=== PATIENT | female | born 1970 | race African-American/Black ===

== ENCOUNTER 2018-07-04 14:36 | Emergency (ER) | payer SELFPAY ==
[2018-07-04 15:12] LABS: % BASOPHILS 0.5 % (0.0-2.0); % LYMPHOCYTES 43.1 % (20.0-50.0); % MONOCYTES 9.7 % (2.0-10.0); % NEUTROPHILS 43.7 % (40.0-80.0); EOSINOPHILE ABSOLUTE 0.2 Th/cmm (0.1-0.4); HEMATOCRIT 36.9 % (41.0-60); HEMOGLOBIN 11.7 gm/dL (12-16); LYMPHOCYTE ABSOLUTE 2.7 Th/cmm (1.5-3.0); MEAN CELL VOLUME 79.9 fl (81-100); MEAN CORPUSCULAR HEMOGLOBIN 25.3 pg (27.0-31.0); MEAN CORPUSCULAR HGB CONC 31.7 pg (28.0-36.0); MEAN PLATELET VOLUME 8.6 fl; MONOCYTE ABSOLUTE 0.6 Th/cmm (0.3-1.0); NEUTROPHILE ABSOLUTE 2.8 Th/cmm (1.8-8.0); PLATELET COUNT 359 Th/cmm (150-400); RED BLOOD COUNT 4.62 Mil/cmm (3.80-5.10); RED CELL DISTRIBUTION WIDTH 15.5 % (11.5-20.0); WHITE BLOOD COUNT 6.3 Th/cmm (4.8-10.8)
[2018-07-04] MEDS ORDERED: Potassium Chloride Elixir 20 mEq /15 mL UDC PO ONE (15:14)
[2018-07-04 15:20] LABS: INR 0.95 (0.5-1.4); PROTHROMBIN TIME (TEST) 9.9 SECONDS (9.5-11.5)
[2018-07-04 15:25] LABS: ALB/GLOB RATIO 1.2 (1.0-1.8); ALBUMIN 3.5 gm/dL (3.7-5.3); ALKALINE PHOSPHATASE 90 U/L (34-104); ANION GAP 10.3 (7.0-16.0); BILIRUBIN,TOTAL 0.3 mg/dL (0.3-1.0); BUN - UREA NITROGEN 16 mg/dL (7-25); CARBON DIOXIDE 29.7 mEq/L (21.0-31.0); CHLORIDE 103 mEq/L (98-107); CREATININE - SERUM 0.6 mg/dL (0.6-1.2); GFR AFRICAN-AMERICAN > 60.0 ml/min (>90); GFR NON AFRICAN-AMERICAN > 60.0 ml/min; GLUCOSE 367 mg/dL (70-105); SGOT 18 U/L (13-39); SGPT/ALT 12 U/L (7-52); SODIUM SERUM 139 mEq/L (136-145); TOTAL PROTEIN,SERUM 6.4 gm/dL (6.0-8.3)
--- NOTE | 2018-07-04 15:31 | ED Physician Chart ---
ED Chief Complaint/HPI - Patient Information Date Seen:: 07/04/18 Time Seen:: 14:58 Chief Complaint:: cough History of Present Illness:: this is a 47 yr old female who is concerned that she has been treated with zithromycin and prednisone for a week and is not better. she has a bronchitis. she denies diabetes and hypertension. Allergies:: Allergies Allergy/AdvReac Type Severity Reaction Status Date / Time guaifenesin [From Robitussin] Allergy Verified 07/04/18 14:53 Vitals:: Vital Signs - 8 hr 07/04/18 14:45 Temp 98.5 F HR 76 RR 19 BP 139/52 O2 Sat % 99 Historian:: Patient Review:: Nurse's Note Reviewed ED Review of Systems - Review of Systems General/Constitutional: No fever, No chills, No weight loss, No weakness, No diaphoresis, No edema, No loss of appetite Skin: No skin lesions, No rash, No bruising Head: No headache, No light-headedness Eyes: No loss of vision, No pain, No diplopia ENT: No earache, No nasal drainage, No sore throat, No tinnitus Neck: No neck pain, No swelling, No thyromegaly, No stiffness, No mass noted Cardio Vascular: No chest pain, No palpitations, No PND, No orthopnea, No edema Pulmonary: Cough GI: No nausea, No vomiting, No diarrhea, No pain, No melena, No hematochezia, No constipation, No hematemesis G/U: No dysuria, No frequency, No hematuria Musculoskeletal: No bone or joint pain, No back pain, No muscle pain Endocrine: No polyuria, No polydipsia Psychiatric: No prior psych history, No depression, No anxiety, No suicidal ideation Hematopoietic: No bruising, No lymphadenopathy Allergic/Immuno: No urticaria, No angioedema Neurological: No syncope, No focal symptoms, No weakness, No paresthesia, No headache, No seizure, No dizziness, No confusion, No vertigo ED Past Medical History - Past Medical History Obtainable: Yes Past Medical History: Asthma/COPD Family History: None Social History: Non Smoker, No Alcohol, No Drug Use Surgical History: None, Psychiatricy History: None Medication: Reviewed Family Medical History - Family Member Mother History Unknown: Yes ED Physical Exam - Physical Examination General/Constitutional: Awake, Well-developed, well-nourished, Alert, No distress, GCS 15, Non-toxic appearing, Ambulatory Head: Atraumatic Eyes: Lids, conjuctiva normal, PERRL, EOMI Skin: Nl inspection, No rash, No skin lesions, No ecchymosis, Well hydrated, No lymphadenopathy ENMT: External ears, nose nl, Nasal exam nl, Lips, teeth, gums nl Neck: Nontender, Full ROM w/o pain, No JVD, No nuchal rigidity, No bruit, No mass, No stridor Respiratory: Nl effort/Exclusion, Clear to Auscultation, No Wheeze/Rhonchi/ Rales (bilateral rhonchi) Cardio Vascular: RRR, No murmur, gallop, rubs, NL S1 S2 GI: No tenderness/rebounding/guarding, No organomegaly, No hernia, Normal BS's, Nondistended, No mass/bruits, No McBurney tenderness : No CVA tenderness Extremities: No tenderness or effusion, Full ROM, normal strength in all extremities, No edema, Normal digits & nails Neuro/Psych: Alert/oriented, DTR's symmetric, Normal sensory exam, Normal motor strength, Judgement/insight normal, Mood normal, Normal gait, No focal deficits Misc: Normal back, No paraspinal tenderness ED Labs/Radiology/EKG Results - Lab Results Results: Laboratory Tests 07/04/18 15:05 WBC 6.3 RBC 4.62 Hgb 11.7 L Hct 36.9 L MCV 79.9 L MCH 25.3 L MCHC Differential 31.7 RDW 15.5 Plt Count 359 MPV 8.6 Neutrophils % 43.7 Lymphocytes % 43.1 Monocytes % 9.7 Eosinophils % 3.0 Basophils % 0.5 Abnormal Lab Results 07/04/18 07/04/18 07/04/18 15:05 15:05 15:05 WBC 6.3 RBC 4.62 Hgb 11.7 L Hct 36.9 L MCV 79.9 L MCH 25.3 L MCHC Differential 31.7 RDW 15.5 Plt Count 359 MPV 8.6 Neutrophils % 43.7 Lymphocytes % 43.1 Monocytes % 9.7 Eosinophils % 3.0 Basophils % 0.5 PT 9.9 INR 0.95 D-Dimer Sodium 139 Potassium 4.0 Chloride 103 Carbon Dioxide 29.7 Anion Gap 10.3 BUN 16 Creatinine 0.6 Est GFR ( Amer) > 60.0 Est GFR (Non-Af Amer) > 60.0 BUN/Creatinine Ratio 26.7 Glucose 367 H Calcium 9.0 Total Bilirubin 0.3 AST 18 ALT 12 Alkaline Phosphatase 90 Troponin I Total Protein 6.4 Albumin 3.5 L Globulin 2.9 Albumin/Globulin Ratio 1.2 TSH 07/04/18 07/04/18 07/04/18 15:05 15:05 15:05 WBC RBC Hgb Hct MCV MCH MCHC Differential RDW Plt Count MPV Neutrophils % Lymphocytes % Monocytes % Eosinophils % Basophils % PT INR D-Dimer < 100 L Sodium Potassium Chloride Carbon Dioxide Anion Gap BUN Creatinine Est GFR ( Amer) Est GFR (Non-Af Amer) BUN/Creatinine Ratio Glucose Calcium Total Bilirubin AST ALT Alkaline Phosphatase Troponin I 0.03 Total Protein Albumin Globulin Albumin/Globulin Ratio TSH 0.68 - Radiology Results Results: chest x-ray = nad - EKG Interpretations EKG Time:: 14:56 Rate & Rhythm: rate= 77, sinus [place]: left axis ED Assessment - Assessment General Assessment: bronchitis patient did not cough at all not one time while in this emergency room. ED Septic Shock - . Is Septic Shock (SBP<90, OR Lactate>4 mmol\L) present?: No - <6hrs of presentation: Vital Signs: Vital Signs - 8 hr 07/04/18 14:45 Temp 98.5 F HR 76 RR 19 BP 139/52 O2 Sat % 99 ED Reassessment (Disposition) - Reassessment Reassessment Condition:: Unchanged - Diagnosis Diagnosis:: bronchitis phenergan with codeine seeker - Aftercare/Follow up Instructions Aftercare/Follow-Up Instructions:: Counseled pt regarding lab results/diagnosis & need follow up, Refer to Discharge Instructions, Counseled pt & family regarding lab results/diagnosis & need follow up Notes:: the patient slipped and fell getting dressed today and we were concerned ordered a ct scan, however she refused stating that she was ok. she denies pain and was ambulating well. she refused any further treatment. Medication Prescribed:: fanatrex for cough and pain ceclor 500mg tid prednisone - Patient Disposition Discharge/Transfer:: Home Condition at Disposition:: Unchanged
--- NOTE | 2018-07-05 10:48 | Diagnostic Imaging Report ---
Portable chest x-ray Time: 1453 History: Cough Allowing for portable technique the heart size is normal. No focal pulmonary parenchymal processes. No hilar or mediastinal abnormalities. Impression: No acute abnormalities.
== END 2018-07-04 16:40 | disposition home or self-care (01) ==
LOC: ER 14:36
DX: J40 Bronchitis, not specified as acute or chronic (principal); J44.9 Chronic obstructive pulmonary disease, unspecified; Z88.8 Allergy status to other drugs, medicaments and biological substances
CPT/HCPCS: 36415-UA; 71045-TC; 80053-TC; 83036-90; 84443-TC; 84484-TC; 85025-TC; 85379-TC; 85610-TC; 93005; Z7502